=== PATIENT | female | born 1955 | race Caucasian/White ===

== ENCOUNTER 2016-10-09 04:36 | Emergency (ER) | payer MEDICARE, MEDICAID ==
[2016-10-09 04:59] VITALS: BP 165/93; PULSE 102; RESP 18; TEMP 98.3; O2SAT 98
[2016-10-09] MEDS ORDERED: Sodium Chloride 0.9% 1,000 ML IV STA (05:34)
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
[2016-10-09 05:49] LABS: BASO # 0.1 K/uL (0.0-0.2); BASO % 0.9 % (0.0-2.0); EOS % 0.1 % (0.0-4.0); HEMATOCRIT 37.5 % (34.0-47.0); LYMPH # 2.3 K/uL (1.0-4.3); LYMPH % 20.6 % (20.0-40.0); MEAN CELL VOLUME 87.7 fl (81.0-99.0); MEAN CORPUSCULAR HEMOGLOBIN 28.2 pg (27.0-31.0); MEAN CORPUSCULAR HGB CONC 32.2 g/dL (33.0-37.0); MEAN PLATELET VOLUME 10.1 fl (7.2-11.7); MONO # 0.4 K/uL (0.0-0.8); MONO % 3.9 % (0.0-10.0); NEUT # 8.4 K/uL (1.8-7.0); NEUT % 74.5 % (50.0-75.0); RED CELL DISTRIBUTION WIDTH 13.1 % (11.5-14.5); WHITE BLOOD COUNT 11.3 K/uL (4.8-10.8)
[2016-10-09 05:57] LABS: ALB/GLOB RATIO 1.1 (1.0-2.1); ALKALINE PHOSPHATASE 68 U/L (38-126); ALT/SGPT 37 U/L (9-52); AST/SGOT 27 U/L (14-36); BILIRUBIN,TOTAL 0.5 mg/dl (0.2-1.3); BLOOD UREA NITROGEN 12 mg/dl (7-17); CALCIUM 9.4 mg/dL (8.4-10.2); CARBON DIOXIDE 22 mmol/L (22-30); CHLORIDE 102 mmol/L (98-107); GFR AFRICAN-AMERICAN > 60; GLUCOSE,RANDOM 295 mg/dL (65-105); POTASSIUM 4.5 MMOL/L (3.6-5.0); SODIUM 141 mmol/l (132-148); TOTAL PROTEIN 7.9 G/DL (6.3-8.2)
[2016-10-09 06:01] LABS: RBC URINE < 1 /hpf (0-3); URINE BILIRUBIN NEGATIVE (NEGATIVE); URINE BLOOD NEGATIVE (NEGATIVE); URINE COLOR COLORLESS (YELLOW); URINE GLUCOSE (UA) >=500 mg/dL (Normal); URINE KETONE NEGATIVE (NEGATIVE); URINE LEUKOCYTE ESTERASE NEG Leu/uL (Negative); URINE PROTEIN NEGATIVE (NEGATIVE); URINE UROBILINOGEN 0.2-1.0 mg/dL (0.2-1.0); WBC URINE < 1 /hpf (0-5)
--- NOTE | 2016-10-09 19:17 | CARD ---
APPROVED REPORT EKG Measurement Heart [id number] <Conclusion> Normal sinus rhythm Possible Left atrial enlargement Borderline ECG
== END 2016-10-09 06:43 | disposition home or self-care (01) ==
LOC: H.ER 04:36
DX: R73.9 Hyperglycemia, unspecified (principal); R07.89 Other chest pain; F43.20 Adjustment disorder, unspecified
CPT/HCPCS: 80053; 81003; 82948; 85025; 93005; 96360; 99283; J7040

== ENCOUNTER 2017-08-15 14:49 | Emergency (ER) | payer MEDICAID, MEDICARE, OTHER ==
[2017-08-15 15:00] VITALS: BP 146/85; PULSE 77; RESP 18; TEMP 97; O2SAT 100
--- NOTE | 2017-08-15 16:07 | ED PDOC ---
HPI: Abdomen Time Seen by Provider: 08/15/17 15:04 Chief Complaint (Nursing): Fever Chief Complaint (Provider): Abdominal Pain History Per: Patient History/Exam Limitations: no limitations Onset/Duration Of Symptoms: Days (x2 weeks) Current Symptoms Are (Timing): Still Present Additional Complaint(s): 62 year old female with a past medical history of HTN, high cholesterol, and diabetes, who presents to the ED complaining of abdominal pain x2 weeks. Patient states the pain is primarily epigastric, but radiates to the upper quadrants. States the pain comes and goes, but is worsening in intensity. Also reports rash x4 days noticed on both arms, right chest, and abdomen. States the rash is not itchy or painful. Confirms intermittent nausea and poor appetite, but denies vomiting, diarrhea, and black or bloody stools. Also confirms chills and occasional sweats, but denies fever or urinary symptoms. Reports seeing her PMD, who told her the rash might be shingles. PMD: Madhu Stuart Past Medical History Reviewed: Historical Data, Nursing Documentation, Vital Signs Vital Signs: Last Vital Signs Temp 97 F L 08/15/17 14:56 Pulse 77 08/15/17 14:56 Resp 18 08/15/17 14:56 BP 146/85 08/15/17 14:56 Pulse Ox 100 08/15/17 18:48 - Medical History PMH: Depression, Diabetes, HTN, Hypercholesterolemia Denies: Hepatitis, HIV, Seizures, Sexually Transmitted Disease - Surgical History Surgical History: (x1) - Family History Family History: States: Unknown Family Hx - Social History Current smoker - smoking cessation education provided: Yes Alcohol: None Drugs: Denies - Immunization History Hx Tetanus Toxoid Vaccination: No Hx Influenza Vaccination: No Hx Pneumococcal Vaccination: Yes (2013) - Home Medications Home Medications: Ambulatory Orders Medication Instructions Recorded Aspirin [Aspirin Chewable] 81 mg PO DAILY 05/24/16 Multivit,Iron,Min 5/Folic Acid 1 tab PO DAILY 05/24/16 [Strovite Forte] Ramipril [Altace] 10 mg PO DAILY 05/24/16 Repaglinide [Prandin] 2 mg PO TID 05/24/16 Simvastatin 40 mg PO HS 05/24/16 Sitagliptin Phos/Metformin HCl 1 each PO BID 11/28/16 [Janumet 50-1,000 mg Tablet] Dicyclomine [Bentyl] 20 mg PO BID PRN #20 tab 08/15/17 Omeprazole Magnesium [Prilosec Otc] 20 mg PO DAILY #30 tcp 08/15/17 - Allergies Allergies/Adverse Reactions: Allergies Allergy/AdvReac Type Severity Reaction Status Date / Time No Known Allergies Allergy Verified 05/24/16 15:17 Review of Systems ROS Statement: Except As Marked, All Systems Reviewed And Found Negative Constitutional: Positive for: Chills, Sweats. Negative for: Fever Gastrointestinal: Positive for: Nausea, Abdominal Pain. Negative for: Vomiting , Diarrhea, Melena, Hematochezia Genitourinary Female: Negative for: Dysuria, Frequency, Incontinence Skin: Positive for: Rash Physical Exam - Reviewed Nursing Documentation Reviewed: Yes Vital Signs Reviewed: Yes - Physical Exam Appears: Positive for: Non-toxic, No Acute Distress Head Exam: Positive for: ATRAUMATIC, NORMOCEPHALIC Skin: Positive for: Rash (skin: rash - isolated petechial lesion on bilateral arms, abdomen, and right chest, non-tender, non-palpable ) Eye Exam: Positive for: EOMI, PERRL ENT: Positive for: Normal ENT Inspection Neck: Positive for: Painless ROM, Supple Cardiovascular/Chest: Positive for: Regular Rate, Rhythm, Chest Non Tender. Negative for: Murmur Respiratory: Positive for: Normal Breath Sounds. Negative for: Wheezing Gastrointestinal/Abdominal: Positive for: Tenderness (epigastric and RUQ tenderness to palpation), Other (Negative McBurney's Point, negative Jose's sign). Negative for: Mass, Guarding, Rebound Back: Positive for: Normal Inspection. Negative for: Muscle Spasm Extremity: Positive for: Normal ROM. Negative for: Deformity Lymphatic: Negative for: Adenopathy Neurologic/Psych: Positive for: Alert. Negative for: Motor/Sensory Deficits - Laboratory Results Result Diagrams: 08/15/17 16:23 08/15/17 16:23 - ECG O2 Sat by Pulse Oximetry: 100 (RA) Pulse Ox Interpretation: Normal Medical Decision Making Medical Decision Making: Time: 15:28 Initial Impression: Abdominal pain and petechial rash. Differential diagnoses include, but are not limited to gallstones, pancreatitis, liver disease, and coagulopathy. Initial Plan: --Blood type and screen --Ammonia --Amlyase --CMP --LDH --Lipase --Magnesium --Phosphorus --ED Urine dipstick --CBC w/ differential --PTT --PT --Blood culture --IV Insertion --Glucose, Blood, POC --US Abdomen Complete --Reevaluation Time: 18:39 FINDINGS: LIVER: Measures 12.9 cm in sagittal dimension. Echogenic liver may be seen in setting of hepatic parenchymal disease or fatty infiltration. No focal hepatic mass identified. The main portal vein appears patent with normal directional flow. No intrahepatic bile duct dilatation. GALLBLADDER: No gallstones. No gallbladder wall thickening. Negative sonographic Jose's sign as assessed by the flyer repairer. COMMON BILE DUCT: Measures 4 mm. PANCREAS: Not well visualized. RIGHT KIDNEY: Measures 11.8 x 4.5 x 4.9cm. No obstructing calculus or hydronephrosis identified. LEFT KIDNEY: Measures 11.6 x 5.4 x 5.0cm. No obstructing calculus or hydronephrosis identified. 0.9 cm and 1.7 cm probable cysts. SPLEEN: Measures approximately 8.0 cm. AORTA: Limited views appear unremarkable. IVC: Limited views appear unremarkable. OTHER FINDINGS: None. IMPRESSION: Echogenic liver may be seen in setting of hepatic parenchymal disease or fatty infiltration. 0.9 cm and 1.7 cm probable left renal cysts. Time: 18:40 Labs presented abnormal findings. Discussed with patient to visit GI specialist and button pusher. Patient provided with antacids for possible stomach acid. Scribe Attestation: Documented by Ji Cook, acting as a scribe for Cady Ruano MD. Provider Scribe Attestation: All medical record entries made by the Scribe were at my direction and personally dictated by me. I have reviewed the chart and agree that the record accurately reflects my personal performance of the history, physical exam, medical decision making, and the department course for this patient. I have also personally directed, reviewed, and agree with the discharge instructions and disposition. Disposition - Clinical Impression Clinical Impression: Abdominal pain, Rash - Disposition Referrals: Waylon Madrid MD [Staff Provider] - ([facility]) Nahun Stone MD [Staff Provider] - ([facility]) Disposition: Routine/Home Disposition Time: 18:30 Condition: STABLE Additional Instructions: LLAME A LAS SPECIALISTAS POR LA MANANA A HACER CITAS EN 1-2 SANCHEZ Prescriptions: Dicyclomine [Bentyl] 20 mg PO BID PRN #20 tab PRN Reason: abdominal pain Omeprazole Magnesium [Prilosec Otc] 20 mg PO DAILY #30 tcp Instructions: Acute Abdomen (Belly Pain), Skin Rash Forms: [facility] (Danish) Print Language: PASHTO
[2017-08-15 16:35] LABS: BASO # 0.1 K/uL (0.0-0.2); BASO % 0.6 % (0.0-2.0); EOS # 0.1 K/uL (0.0-0.7); EOS % 1.3 % (0.0-4.0); HEMOGLOBIN 12.4 g/dL (12.0-16.0); LYMPH # 2.8 K/uL (1.0-4.3); LYMPH % 33.8 % (20.0-40.0); MEAN CELL VOLUME 87.7 fl (81.0-99.0); MEAN CORPUSCULAR HEMOGLOBIN 28.7 pg (27.0-31.0); MEAN CORPUSCULAR HGB CONC 32.7 g/dL (33.0-37.0); MEAN PLATELET VOLUME 10.2 fl (7.2-11.7); MONO # 0.7 K/uL (0.0-0.8); MONO % 7.7 % (0.0-10.0); NEUT # 4.8 K/uL (1.8-7.0); NEUT % 56.6 % (50.0-75.0); RBC 4.31 Mil/uL (3.80-5.20); RED CELL DISTRIBUTION WIDTH 13.1 % (11.5-14.5); WHITE BLOOD COUNT 8.4 K/uL (4.8-10.8)
[2017-08-15 16:44] LABS: ALB/GLOB RATIO 1.2 (1.0-2.1); ALBUMIN 4.2 g/dL (3.5-5.0); ALT/SGPT 31 U/L (9-52); AMYLASE 93 U/L (30-110); AST/SGOT 24 U/L (14-36); BLOOD UREA NITROGEN 22 mg/dl (7-17); GFR AFRICAN-AMERICAN > 60; GFR NON-AFRICAN AMERICAN > 60; LIPASE 155 U/L (23-300); MAGNESIUM 1.5 MG/DL (1.6-2.3)
[2017-08-15 16:53] LABS: PARTIAL THROMBOPLASTIN TIME 28.9 Seconds (25.6-37.1); PROTHROMBIN TIME 11.4 Seconds (9.8-13.1)
--- NOTE | 2017-08-15 18:08 | US ---
HISTORY: abdominal pain epigastric/BUQ COMPARISON: None available TECHNIQUE: Sonographic evaluation of the abdomen. FINDINGS: LIVER: Measures 12.9 cm in sagittal dimension. Echogenic liver may be seen in setting of hepatic parenchymal disease or fatty infiltration. No focal hepatic mass identified. The main portal vein appears patent with normal directional flow. No intrahepatic bile duct dilatation. GALLBLADDER: No gallstones. No gallbladder wall thickening. Negative sonographic Jose's sign as assessed by the public relations assistant. COMMON BILE DUCT: Measures 4 mm. PANCREAS: Not well visualized. RIGHT KIDNEY: Measures 11.8 x 4.5 x 4.9cm. No obstructing calculus or hydronephrosis identified. LEFT KIDNEY: Measures 11.6 x 5.4 x 5.0cm. No obstructing calculus or hydronephrosis identified. 0.9 cm and 1.7 cm probable cysts. SPLEEN: Measures approximately 8.0 cm. AORTA: Limited views appear unremarkable. IVC: Limited views appear unremarkable. OTHER FINDINGS: None. IMPRESSION: Echogenic liver may be seen in setting of hepatic parenchymal disease or fatty infiltration. 0.9 cm and 1.7 cm probable left renal cysts.
== END 2017-08-15 19:37 | disposition home or self-care (01) ==
LOC: H.ER 14:49
DX: R10.9 Unspecified abdominal pain (principal); R21 Rash and other nonspecific skin eruption; I10 Essential (primary) hypertension; E11.9 Type 2 diabetes mellitus without complications; E78.00 Pure hypercholesterolemia, unspecified; F32.9 Major depressive disorder, single episode, unspecified; Z79.82 Long term (current) use of aspirin; F17.200 Nicotine dependence, unspecified, uncomplicated

== ENCOUNTER 2018-01-13 21:51 | Emergency (ER) | payer MEDICARE, OTHER ==
[2018-01-13 21:59] VITALS: RESP 16; TEMP 98.4; O2SAT 98
[2018-01-13 22:30] LABS: BASO # 0.1 K/uL (0.0-0.2); BASO % 0.9 % (0.0-2.0); EOS # 0.1 K/uL (0.0-0.7); EOS % 1.3 % (0.0-4.0); HEMOGLOBIN 12.1 g/dL (12.0-16.0); LYMPH # 2.8 K/uL (1.0-4.3); MEAN CELL VOLUME 87.9 fl (81.0-99.0); MEAN CORPUSCULAR HEMOGLOBIN 29.4 pg (27.0-31.0); MEAN CORPUSCULAR HGB CONC 33.4 g/dL (33.0-37.0); MEAN PLATELET VOLUME 9.9 fl (7.2-11.7); MONO # 0.6 K/uL (0.0-0.8); MONO % 7.9 % (0.0-10.0); NEUT # 3.6 K/uL (1.8-7.0); NEUT % 50.9 % (50.0-75.0); NRBC % 0.1 % (0.0-0.0); RBC 4.12 Mil/uL (3.80-5.20); RED CELL DISTRIBUTION WIDTH 13.4 % (11.5-14.5); WHITE BLOOD COUNT 7.1 K/uL (4.8-10.8)
[2018-01-13 22:42] LABS: ALB/GLOB RATIO 1.3 (1.0-2.1); ALBUMIN 4.4 g/dL (3.5-5.0); ALT/SGPT 28 U/L (9-52); AST/SGOT 22 U/L (14-36); BLOOD UREA NITROGEN 15 mg/dl (7-17); CALCIUM 9.5 mg/dL (8.4-10.2); GFR AFRICAN-AMERICAN > 60; GFR NON-AFRICAN AMERICAN > 60; LIPASE 200 U/L (23-300)
[2018-01-13 23:00] LABS: URINE BILIRUBIN NEGATIVE (NEGATIVE); URINE BLOOD NEGATIVE (NEGATIVE); URINE CLARITY CLEAR (Clear); URINE COLOR COLORLESS (YELLOW); URINE GLUCOSE (UA) >=500 mg/dL (Normal); URINE LEUKOCYTE ESTERASE NEG Leu/uL (Negative); URINE PROTEIN NEGATIVE (NEGATIVE); URINE UROBILINOGEN 0.2-1.0 mg/dL (0.2-1.0)
[2018-01-13 23:21] LABS: BARBITURATES, UR NEGATIVE (NEGATIVE); BENZODIAZEPINES, UR NEGATIVE (NEGATIVE); OPIATES, UR NEGATIVE (NEGATIVE); PHENCYCLIDINE, UR NEGATIVE (NEGATIVE)
--- NOTE | 2018-01-14 00:08 | ED PDOC ---
Syncope/Near Syncope/Dizziness Time Seen by Provider: 01/13/18 22:02 Chief Complaint (Nursing): Dizziness/Lightheaded Chief Complaint (Provider): Anxiety/Presyncope History Per: Patient, Gm Video History/Exam Limitations: language barrier Onset/Duration Of Symptoms: Hrs (two) Current Symptoms Are (Timing): Better Activity At Onset Of Symptoms: Sitting Associated Symptoms Preceding Syncopal Episode: No Predromal Symptoms (Sudden Onset) Seizure Or Post-ictal Symptoms: None Possible Causative Factor(s): Other (anxious state) Fall Associated With With Symptoms: No Severity: Mild Past Medical History Reviewed: Historical Data, Nursing Documentation, Vital Signs Vital Signs: Last Vital Signs Temp 98.4 F 01/13/18 21:56 Pulse 92 H 01/13/18 21:56 Resp 16 01/13/18 21:56 BP 169/82 H 01/13/18 21:56 Pulse Ox 98 01/13/18 21:56 - Medical History PMH: Depression, Diabetes, HTN, Hypercholesterolemia Denies: Hepatitis, HIV, Seizures, Sexually Transmitted Disease - Surgical History Surgical History: (x1) - Family History Family History: States: Unknown Family Hx - Immunization History Hx Tetanus Toxoid Vaccination: No Hx Influenza Vaccination: No Hx Pneumococcal Vaccination: Yes (2013) - Home Medications Home Medications: Ambulatory Orders Medication Instructions Recorded Aspirin [Aspirin Chewable] 81 mg PO DAILY 05/24/16 Multivit,Iron,Min 5/Folic Acid 1 tab PO DAILY 05/24/16 [Strovite Forte] Ramipril [Altace] 10 mg PO DAILY 05/24/16 Repaglinide [Prandin] 2 mg PO TID 05/24/16 Simvastatin 40 mg PO HS 05/24/16 Sitagliptin Phos/Metformin HCl 1 each PO BID 05/24/16 [Janumet 50-1,000 mg Tablet] Dicyclomine [Bentyl] 20 mg PO BID PRN #20 tab 08/15/17 Omeprazole Magnesium [Prilosec Otc] 20 mg PO DAILY #30 tcp 08/15/17 ALPRAZolam [Xanax] 1 tab PO BID #4 tab 01/14/18 - Allergies Allergies/Adverse Reactions: Allergies Allergy/AdvReac Type Severity Reaction Status Date / Time No Known Allergies Allergy Verified 01/13/18 21:55 Review of Systems Neurological: Positive for: Dizziness Psych: Positive for: Anxiety Physical Exam - Reviewed Nursing Documentation Reviewed: Yes Vital Signs Reviewed: Yes - Physical Exam Appears: Positive for: Well, Non-toxic, No Acute Distress. Negative for: Uncomfortable Head Exam: Positive for: ATRAUMATIC, NORMAL INSPECTION Skin: Positive for: Normal Color, Warm, Dry Eye Exam: Positive for: Normal appearance, EOMI, PERRL. Negative for: Nystagmus , Periorbital swelling, Periorbital tenderness Neck: Positive for: Normal, Painless ROM, Supple. Negative for: Decreased ROM Cardiovascular/Chest: Positive for: Regular Rate, Rhythm, Chest Non Tender. Negative for: Edema, Gallop, Bradycardia, Tachycardia, Irregularly Irregular Respiratory: Positive for: Normal Breath Sounds. Negative for: Decreased Breath Sounds, Accessory Muscle Use, Crackles, Rales, Rhonchi, Stridor, Wheezing , Respiratory Distress Pulses-Carotid (L): 2+ Pulses-Carotid (R): 2+ Pulses-Radial (L): 2+ Pulses-Radial (R): 2+ Gastrointestinal/Abdominal: Positive for: Normal Exam, Bowel Sounds (active in all four quadrants), Soft. Negative for: Tenderness Neurologic/Psych: Positive for: Alert, Oriented, Mood/Affect - Laboratory Results Result Diagrams: 01/13/18 22:20 01/13/18 22:20 Urine POC: Negative - ECG ECG: Positive for: Interpreted By Me ECG Rhythm: Positive for: Normal QRS, Normal ST Segment, Sinus Rhythm O2 Sat by Pulse Oximetry: 98 Medical Decision Making Medical Decision Making: R/O CVA R/O ACS Acute anxiety attack Patient seen by crisis counselors and provided treatmenet plans for outpatient therapy Pt indicates xanax given po in ed helped tremendously [place] Pt given discharge rx for #4 xanax 0.25mg Disposition - Clinical Impression Clinical Impression: Anxiety - Patient ED Disposition Is Patient to be Admitted: No Discussed With : Philip Whitaker (discharge dx anxiety) Doctor Will See Patient In The: Office Counseled Patient/Family Regarding: Diagnosis, Need For Followup, Rx Given - Disposition Disposition: Routine/Home Disposition Time: 01:15 Condition: STABLE Additional Instructions: outpatient treatment options provided by crisis counseling Prescriptions: ALPRAZolam [Xanax] 1 tab PO BID #4 tab Instructions: Anxiety, Adult (DC) Forms: [facility] (Scottish)
[2018-01-14 02:48] VITALS: BP 128/73; PULSE 89
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
--- NOTE | 2018-01-14 13:43 | CARD ---
APPROVED REPORT Date of service: 01/13/2018 EKG Measurement Heart [id number] <Conclusion> Normal sinus rhythm Normal ECG
== END 2018-01-14 01:30 | disposition home or self-care (01) ==
LOC: H.ER 21:51
DX: R42 Dizziness and giddiness (principal); F41.9 Anxiety disorder, unspecified; E11.9 Type 2 diabetes mellitus without complications; I10 Essential (primary) hypertension
CPT/HCPCS: 70450; 80053; 81003; 83690; 84484; 85025; 93005; 99285; G0480

== ENCOUNTER 2018-04-03 15:33 | Emergency (ER) | payer MEDICARE, OTHER ==
[2018-04-03 16:25] VITALS: BP 115/75; PULSE 83; RESP 20; TEMP 98; O2SAT 100
[2018-04-03] MEDS ORDERED: Morphine 4 MG/ML VIAL IM STA (17:06)
[2018-04-03 17:07] VITALS: BMI 47.7
[2018-04-03] MEDS ORDERED: Morphine 4 MG/ML VIAL ONE (17:14)
--- NOTE | 2018-04-03 19:49 | ED PDOC ---
HPI: Back Chief Complaint (Provider): Back Pain History Per: Patient History/Exam Limitations: no limitations Onset/Duration Of Symptoms: Hrs (since 1300 today) Current Symptoms Are (Timing): Still Present Additional Complaint(s): 62 year old female presents to the ED for evaluation of back pain s/p falling. Patient reports that earlier today around 1300, she slipped and fell on her back in the bathroom and has had bilateral thoracic back pain ever since. She is able to ambulate and denies any LOC, use of anticoagulants, or head injury, but did take four Tylenol around 1430 with mild relief. Otherwise denies numbness, parethesias, weakness, bowel / bladder incontinence, headache, neck pain, hip pain, urinary sxs, abdominal pain, and vomiting. PMD: Madhu Stuart F <Erica Fletcher - Last Filed: 04/04/18 23:49> <Lenora Michelle F - Last Filed: 04/05/18 17:11> Time Seen by Provider: 04/03/18 17:00 Chief Complaint (Nursing): Back Pain Past Medical History Reviewed: Historical Data, Nursing Documentation, Vital Signs Vital Signs: Last Vital Signs Temp 98 F 04/03/18 16:24 Pulse 83 04/03/18 16:24 Resp 20 04/03/18 16:24 BP 115/75 04/03/18 16:24 Pulse Ox 100 04/03/18 16:24 - Medical History PMH: Depression, Diabetes, HTN, Hypercholesterolemia Denies: Hepatitis, HIV, Seizures, Sexually Transmitted Disease - Surgical History Surgical History: (x1) - Family History Family History: States: Unknown Family Hx - Social History Current smoker - smoking cessation education provided: No Alcohol: None Drugs: Denies - Immunization History Hx Tetanus Toxoid Vaccination: No Hx Influenza Vaccination: No Hx Pneumococcal Vaccination: Yes (2013) <Erica Fletcher - Last Filed: 04/04/18 23:49> Vital Signs: Last Vital Signs Temp 98 F 04/03/18 16:24 Pulse 83 04/03/18 16:24 Resp 20 04/03/18 16:24 BP 115/75 04/03/18 16:24 Pulse Ox 100 04/04/18 23:50 <Lenora Michelle - Last Filed: 04/05/18 17:11> - Home Medications Home Medications: Ambulatory Orders Medication Instructions Recorded Multivit,Iron,Min 5/Folic Acid 1 tab PO DAILY 05/24/16 [Strovite Forte] RX: Aspirin [Aspirin Chewable] 81 mg PO DAILY 05/24/16 RX: Simvastatin 40 mg PO HS 05/24/16 Ramipril [Altace] 10 mg PO DAILY 05/24/16 Repaglinide [Prandin] 2 mg PO TID 05/24/16 Sitagliptin Phos/Metformin HCl 1 each PO BID 05/24/16 [Janumet 50-1,000 mg Tablet] Dicyclomine [Bentyl] 20 mg PO BID PRN #20 tab 08/15/17 Omeprazole Magnesium [Prilosec Otc] 20 mg PO DAILY #30 tcp 08/15/17 ALPRAZolam [Xanax] 1 tab PO BID #4 tab 01/14/18 RX: Ibuprofen [Motrin Tab] 600 mg PO Q6H PRN #30 tab 04/03/18 - Allergies Allergies/Adverse Reactions: Allergies Allergy/AdvReac Type Severity Reaction Status Date / Time No Known Allergies Allergy Verified 01/13/18 21:55 Supervising Attending Note - Attestation: I have personally seen and examined this patient.: No I have reviewed all pertinent clinical information: Yes <Lenora Michelle - Last Filed: 04/05/18 17:11> Review of Systems ROS Statement: Except As Marked, All Systems Reviewed And Found Negative Gastrointestinal: Negative for: Vomiting, Abdominal Pain Genitourinary Female: Negative for: Dysuria, Frequency, Incontinence (bowel or bladder) Musculoskeletal: Positive for: Back Pain (bilateral thoracic). Negative for: Neck Pain, Other (hip pain) Neurological: Negative for: Weakness, Numbness, Headache, Other (paresthesias) <Erica Fletcher - Last Filed: 04/04/18 23:49> Physical Exam - Reviewed Nursing Documentation Reviewed: Yes Vital Signs Reviewed: Yes - Physical Exam Appears: Positive for: No Acute Distress (but anxious appearing) Head Exam: Positive for: ATRAUMATIC, NORMOCEPHALIC Skin: Positive for: Normal Color, Warm, Dry Eye Exam: Positive for: Normal appearance, EOMI, PERRL ENT: Positive for: Normal ENT Inspection Neck: Positive for: Normal, Painless ROM, Supple Cardiovascular/Chest: Positive for: Regular Rate, Rhythm Respiratory: Positive for: Normal Breath Sounds. Negative for: Accessory Muscle Use, Respiratory Distress Gastrointestinal/Abdominal: Positive for: Normal Exam, Soft. Negative for: Tenderness Back: Positive for: Normal Inspection, Other (Moderate para spinal thoracic tenderness bilaterally and right sided para spinal lumbar tenderness). Negative for: Vertebral Tenderness Extremity: Positive for: Normal ROM Neurologic/Psych: Positive for: Alert, Oriented (x3), Gait (normal and unassisted) <Erica Fletcher - Last Filed: 04/04/18 23:49> - ECG O2 Sat by Pulse Oximetry: 100 (RA) Pulse Ox Interpretation: Normal <Erica Fletcher - Last Filed: 04/04/18 23:49> Medical Decision Making Medical Decision Making: Time: 1705 Initial Impression: muscle strain Initial Plan: --U-dip --Ibuprofen 600 mg PO --Zofran 4mg pO --Pelvis XR --Ribs bilat XR Xrays read as negative for fracture by me and Dr. Ruano. 1919 Script for 600mg Ibuprofen given. Pt advised to avoid strenuous activity for the next week / apply heat to the area, and follow up with PMD, or return to ED with worsening symptoms. Scribe Attestation: Documented by Mine Martines, acting as a scribe for Erica Fletcher PA-C. Provider Scribe Attestation: All medical record entries made by the Scribe were at my direction and personally dictated by me. I have reviewed the chart and agree that the record accurately reflects my personal performance of the history, physical exam, medical decision making, and the department course for this patient. I have also personally directed, reviewed, and agree with the discharge instructions and disposition. <Erica Fletcher - Last Filed: 04/04/18 23:49> Disposition - Disposition Disposition: Routine/Home Disposition Time: 19:20 <Erica Fletcher - Last Filed: 04/04/18 23:49> <Lenora Michelle - Last Filed: 04/05/18 17:11> - Clinical Impression Clinical Impression: Muscle strain - Disposition Referrals: [facility] [Outside] Condition: IMPROVED Additional Instructions: Apply heat to injured area to relieve pain No strenuous activity for 1 week Take ibuprofen every 6 hours with food as needed for pain Followup with clinic within 2 days Return to emergency department if symptoms persist or worsen Prescriptions: RX: Ibuprofen [Motrin Tab] 600 mg PO Q6H PRN #30 tab PRN Reason: Pain, Moderate (4-7) Instructions: Muscle Strain Forms: [facility] (Colombian)
--- NOTE | 2018-04-04 08:43 | RAD ---
Date of service: 04/03/2018 PROCEDURE: Radiographs of the chest and bilateral ribs HISTORY: bilateral posterior rib pain s/p fall COMPARISON: None available. TECHNIQUE: Frontal radiograph of the chest and multiple oblique radiographs of the bilateral ribs were obtained. FINDINGS: RIGHT RIBS: No fracture or focal lesion visualized. LEFT RIBS: No fracture or focal lesion visualized. LUNGS: Clear. PLEURA: No pneumothorax or pleural fluid. CARDIOVASCULAR: Normal sized heart. No pulmonary vascular congestion. OTHER FINDINGS: None. IMPRESSION: Unremarkable radiographs of the chest and bilateral ribs. No rib fracture.
--- NOTE | 2018-04-04 09:00 | RAD ---
Date of service: 04/03/2018 PROCEDURE: Radiographs of the pelvis. HISTORY: pain s/p fall COMPARISON: None. FINDINGS: BONES: No fracture destructive bony lesion appreciable. Pelvic ring appears intact grossly. No destructive bony lesion identified. JOINTS: Sacroiliac Joints: Moderate degenerative changes seen at the bilateral sacroiliac joints as well Pubic Symphysis: As the bilateral hip joints. OTHER FINDINGS: Nonspecific soft tissue calcifications are identified. IMPRESSION: Degenerative changes are identified bilaterally on a moderate basis. No acute fracture or dislocation.
== END 2018-04-03 19:25 | disposition home or self-care (01) ==
LOC: H.ER 15:33
DX: S39.012A Strain of muscle, fascia and tendon of lower back, initial encounter (principal); W01.0XXA Fall on same level from slipping, tripping and stumbling without subsequent striking against object, initial encounter; Y92.002 Bathroom of unspecified non-institutional (private) residence as the place of occurrence of the external cause; E11.9 Type 2 diabetes mellitus without complications; E78.00 Pure hypercholesterolemia, unspecified; F32.9 Major depressive disorder, single episode, unspecified; I10 Essential (primary) hypertension; Z79.82 Long term (current) use of aspirin

== ENCOUNTER 2018-07-04 12:24 | Emergency (ER) | payer MEDICARE, OTHER ==
[2018-07-04 12:46] VITALS: BMI 21.6
[2018-07-04] MEDS ORDERED: Albuterol-Ipratrop 3 mg / 0.5 (3 ml) UD INH STA (14:48)
--- NOTE | 2018-07-04 14:53 | ED PDOC ---
HPI: Influenza Time Seen by Provider: 07/04/18 13:19 Chief Complaint: Flu-like Symptoms Chief Complaint (Provider): cough, bodyaches History Per: Patient Risk factors for flu complications: Yes: metabolic disease (DM) Additional complaint(s):: 63 y/o F with hx of DM, HTN, HL who presents with dysuria and fever/coughs. Pt states that she began having Right flank pain and dysuria about 1 week ago. She then developed a cough productive of greenish sputum with body aches, chills, nasal congestion and subjective fevers 2 days ago. She states that she has been feeling some SOB even when breathing through her mouth and occasionally has chest pain with cough. Denies C/P currently or N/V, diarrhea. She further states that she is having significant burning when she urinates and flank/back pain. She has not had the flu shot this season. Further denies vaginal discharge. Past Medical History Reviewed: Historical Data, Nursing Documentation Vital Signs: Last Vital Signs Temp 98.4 F 07/04/18 12:47 Pulse 82 07/04/18 12:47 Resp 20 07/04/18 12:47 BP 148/70 07/04/18 12:47 Pulse Ox 98 07/04/18 12:47 - Medical History PMH: Depression, Diabetes, HTN, Hypercholesterolemia Denies: Hepatitis, HIV, Seizures, Sexually Transmitted Disease - Surgical History Surgical History: (x1) - Family History Family History: States: Unknown Family Hx - Immunization History Hx Tetanus Toxoid Vaccination: No Hx Influenza Vaccination: No Hx Pneumococcal Vaccination: Yes (2013) - Home Medications Home Medications: Ambulatory Orders Medication Instructions Recorded Aspirin [Aspirin Chewable] 81 mg PO DAILY 05/24/16 Multivit,Iron,Min 5/Folic Acid 1 tab PO DAILY 05/24/16 [Strovite Forte] Ramipril [Altace] 10 mg PO DAILY 05/24/16 Repaglinide [Prandin] 2 mg PO TID 05/24/16 Simvastatin 40 mg PO HS 05/24/16 Sitagliptin Phos/Metformin HCl 1 each PO BID 05/24/16 [Janumet 50-1,000 mg Tablet] Dicyclomine [Bentyl] 20 mg PO BID PRN #20 tab 08/15/17 Omeprazole Magnesium [Prilosec Otc] 20 mg PO DAILY #30 tcp 08/15/17 ALPRAZolam [Xanax] 1 tab PO BID #4 tab 01/14/18 Ibuprofen [Motrin Tab] 600 mg PO Q6H PRN #30 tab 04/03/18 Acetaminophen [Tylenol 325mg tab] 650 mg PO Q6 PRN 7 Days tab 07/04/18 Albuterol 0.083% [Albuterol 3 ml IH Q6 PRN 5 Days neb 07/04/18 Sulfate 3 Ml] Benzonatate [Tessalon Perles] 100 mg PO TID PRN 7 Days sgl 07/04/18 Ibuprofen [Motrin Tab] 600 mg PO Q6 PRN 7 Days tab 07/04/18 Oseltamivir Phosphate [Tamiflu] 75 mg PO BID 5 Days capsule 07/04/18 - Allergies Allergies/Adverse Reactions: Allergies Allergy/AdvReac Type Severity Reaction Status Date / Time No Known Allergies Allergy Verified 07/04/18 12:45 Review of Systems Constitutional: Positive for: Fever, Chills, Sweats, Malaise ENT: Positive for: Nose Discharge, Nose Congestion. Negative for: Ear Pain, Throat Pain Respiratory: Positive for: Cough, Shortness of Breath, Pleuritic Pain Gastrointestinal: Negative for: Nausea, Vomiting, Abdominal Pain, Diarrhea Neurological: Negative for: Headache Physical Exam - Reviewed Nursing Documentation Reviewed: Yes Vital Signs Reviewed: Yes - Physical Exam Appears: Positive for: Uncomfortable Head Exam: Positive for: ATRAUMATIC Skin: Positive for: Normal Color Eye Exam: Positive for: Conjunctival injection (mild b/l) ENT: Positive for: Pharynx Is (normal), TM Is/Are (occluded by cerumen B/L), Sinus Pain/Drainage, Nasal Congestion. Negative for: Pharyngeal Erythema, Tonsillar Exudate, Tonsillar Swelling Neck: Positive for: Normal Cardiovascular/Chest: Positive for: Regular Rate, Rhythm Respiratory: Positive for: Rhonchi (B/L intermittent) Gastrointestinal/Abdominal: Positive for: Normal Exam Back: Positive for: Normal Inspection, Other (tenderness on palpation of Right flank/rib cage). Negative for: L CVA Tenderness, R CVA Tenderness Medical Decision Making Medical Decision Making: Rapid flu DuoNeb x 1 CXR PA and lateral Tamiflu 75mg PO x 1 U/A and urine culture Tylenol 650mg PO x 1 CXR: Poor inspiration with low lung volumes, crowded bronchovascular markings and minor bibasilar atelectasis.. PLEURA: No significant pleural effusion identified. No pneumothorax apparent. CARDIOVASCULAR: No aortic atherosclerotic calcification present. Normal cardiac size. No pulmonary vascular congestion. OSSEOUS STRUCTURES: Minor multilevel degenerative spondylosis of the thoracic spine. VISUALIZED UPPER ABDOMEN: Normal. OTHER FINDINGS: None. IMPRESSION: Poor inspiration with low lung volumes, crowded bronchovascular markings and minor bibasilar atelectasis. 18:00: Rapid flu negative but symptoms c/w Influenza. Feeling slightly better, continues to cough but breathing has improved. Glucose noted to be 365 so ordered for 1L NS fluid bolus and Insulin 4units SQ after Accucheck 265. Pt eating. Labs wnl. 20:00: re-evaluated: pt KING and cough have improved somewhat. VSS. Stable for d/c home with return instructions given. - Laboratory Results Result Diagrams: 07/04/18 15:19 07/04/18 15:19 - ECG O2 Sat by Pulse Oximetry: 98 Disposition - Clinical Impression Clinical Impression: Influenza - Patient ED Disposition Is Patient to be Admitted: No Counseled Patient/Family Regarding: Studies Performed, Diagnosis, Need For Followup, Rx Given - Disposition Referrals: Madhu Stuart MD [Family Provider] - Disposition: Routine/Home Disposition Time: 20:20 Condition: STABLE Additional Instructions: Return to ER if you develop worsening shortness of breath or chest pain. Take Tamiflu as prescribed. Use Albuterol for cough and Tylenol/Ibuprofen for pain/fevers. F/u with your primary care doctor as needed. Prescriptions: Acetaminophen [Tylenol 325mg tab] 650 mg PO Q6 PRN 7 Days tab PRN Reason: Pain, Moderate (4-7) Albuterol 0.083% [Albuterol Sulfate 3 Ml] 3 ml IH Q6 PRN 5 Days neb PRN Reason: Cough Benzonatate [Tessalon Perles] 100 mg PO TID PRN 7 Days sgl PRN Reason: Cough Ibuprofen [Motrin Tab] 600 mg PO Q6 PRN 7 Days tab PRN Reason: Pain, Moderate (4-7) Oseltamivir Phosphate [Tamiflu] 75 mg PO BID 5 Days capsule Instructions: Flu, Adult (DC) Forms: [employer] ([place]) Print Language: MALTESE
[2018-07-04] MEDS ORDERED: Albuterol-Ipratrop 3 mg / 0.5 (3 ml) UD ONE (15:16)
--- NOTE | 2018-07-04 15:26 | RAD ---
Date of service: 07/04/2018 HISTORY: Shortness of breath, cough COMPARISON: Comparison made with prior chest radiograph dated 04/03/2018. TECHNIQUE: Chest PA and lateral FINDINGS: LUNGS: Poor inspiration with low lung volumes, crowded bronchovascular markings and minor bibasilar atelectasis.. PLEURA: No significant pleural effusion identified. No pneumothorax apparent. CARDIOVASCULAR: No aortic atherosclerotic calcification present. Normal cardiac size. No pulmonary vascular congestion. OSSEOUS STRUCTURES: Minor multilevel degenerative spondylosis of the thoracic spine. VISUALIZED UPPER ABDOMEN: Normal. OTHER FINDINGS: None. IMPRESSION: Poor inspiration with low lung volumes, crowded bronchovascular markings and minor bibasilar atelectasis..
[2018-07-04 15:33] LABS: BASO # 0.1 K/uL (0.0-0.2); BASO % 0.9 % (0.0-2.0); EOS # 0.1 K/uL (0.0-0.7); EOS % 1.4 % (0.0-4.0); LYMPH # 1.7 K/uL (1.0-4.3); LYMPH % 23.2 % (20.0-40.0); MEAN CELL VOLUME 91.2 fl (81.0-99.0); MEAN CORPUSCULAR HEMOGLOBIN 29.5 pg (27.0-31.0); MEAN CORPUSCULAR HGB CONC 32.4 g/dL (33.0-37.0); MEAN PLATELET VOLUME 10.2 fl (7.2-11.7); MONO # 0.7 K/uL (0.0-0.8); MONO % 9.1 % (0.0-10.0); NEUT # 4.7 K/uL (1.8-7.0); NEUT % 65.4 % (50.0-75.0); NRBC % 0.1 % (0.0-0.0); RBC 4.07 Mil/uL (3.80-5.20); RED CELL DISTRIBUTION WIDTH 13.1 % (11.5-14.5); WHITE BLOOD COUNT 7.3 K/uL (4.8-10.8)
[2018-07-04 15:43] LABS: BLOOD UREA NITROGEN 14 mg/dl (7-17); CALCIUM 9.1 mg/dL (8.4-10.2); GFR NON-AFRICAN AMERICAN > 60
[2018-07-04 16:40] LABS: SQUAMOUS EPITHIAL 2 /hpf (0-5); URINE BILIRUBIN NEGATIVE (NEGATIVE); URINE BLOOD NEGATIVE (NEGATIVE); URINE CLARITY CLEAR (Clear); URINE COLOR STRAW (YELLOW); URINE GLUCOSE (UA) >=500 mg/dL (NEGATIVE); URINE LEUKOCYTE ESTERASE NEG Leu/uL (Negative); URINE PROTEIN NEGATIVE (NEGATIVE); URINE UROBILINOGEN 0.2-1.0 mg/dL (0.2-1.0)
[2018-07-04] MEDS ORDERED: Sodium Chloride 0.9% 1,000 ML IV STA (17:24)
[2018-07-04] MEDS ORDERED: Insulin Regular 100 units/ml SC STA ×3 (17:25→18:02)
[2018-07-04 19:52] VITALS: BP 139/77; PULSE 83; RESP 18; TEMP 98.8
[2018-07-04 20:23] VITALS: O2SAT 98
== END 2018-07-04 20:20 | disposition home or self-care (01) ==
LOC: H.ER 12:24
DX: J11.1 Influenza due to unidentified influenza virus with other respiratory manifestations (principal); E11.9 Type 2 diabetes mellitus without complications; E78.00 Pure hypercholesterolemia, unspecified; I10 Essential (primary) hypertension; Z79.899 Other long term (current) drug therapy
CPT/HCPCS: 71046; 80048; 81003; 82948; 85025; 87086; 87804; 94150; 94640; 96360; 96372; 99283; J7030